=== PATIENT | male | born 1955 | race Caucasian/White ===

== ENCOUNTER 2023-10-15 21:01 | Emergency (ER) | payer MEDICARE, BC, SELFPAY ==
[2023-10-15 21:06] VITALS: BP 140/94
[2023-10-15 21:38] VITALS: BP 134/87
[2023-10-15 22:00] VITALS: BP 133/94
[2023-10-15] MEDS: NSS 1000 IV (22:06)
[2023-10-15 22:11] VITALS: BMI 24.4
[2023-10-15] MEDS: ZOFRAN 4 MG IV (22:15)
[2023-10-15 22:22] LABS: % Basophils 0.3 % (0-2); % Lymphocytes 25.2 % (20.5-51.1); % Monocytes 19.2 % (1.7-9.3); % Neutrophils 55.3 % (42.2-75.2); Absolute Lymphocytes 0.9 10^3/uL (1.2-3.4); Absolute Monocytes 0.7 10^3/uL (0.1-0.6); Hematocrit 44.8 % (39.0-52.0); Mean Corp Hgb Conc. 35.7 g/dL (33.0-37.0); Mean Corpuscular Hgb 30.6 pg (27.0-31.0); Mean Corpuscular Volume 85.7 fL (80.0-94.0); Mean Platelet Volume 9.7 fL (7.4-10.4); Nucleated Red Blood Cells % 0 % (-); Platelet Count 112 10^3/uL (130-400); Red Blood Cell Count 5.23 10^6/uL (4.70-6.10); Red Cell Dist. Width 12.4 % (11.5-14.5); White Blood Cell Count 3.7 10^3/uL (4.8-10.8)
[2023-10-15 22:34] LABS: COVID-19 Antigen Negative (Negative)
[2023-10-15 22:41] LABS: ALT (SGPT) 27 U/L (0-50); AST (SGOT) 38 U/L (17-59); Albumin 4.4 g/dl (3.5-5.0); Alkaline Phosphatase 65 U/L (38-126); Blood Urea Nitrogen 28 mg/dl (9-20); Calcium 9.1 mg/dl (8.4-10.2); Carbon Dioxide 28 mmol/L (22-30); Chloride 100 mmol/L (98-107); Estimated Creatinine Clearance 60 ml/min; Glucose 100 mg/dl (70-99); Lipase 46 U/L (23-300); Potassium 4.9 mmol/L (3.5-5.1); Sodium 136 mmol/L (135-145); Total Bilirubin 1.6 mg/dl (0.2-1.3); Total Protein 6.5 g/dl (6.3-8.2); eGFR > 60.00
--- NOTE | 2023-10-15 22:57 | ED.GENMED ---
History of Present Illness
General
Chief Complaint: Dehydration Symptoms
Source: patient
Exam Limitations: none
Time Seen by Provider: 10/15/23 22:12
Nursing documentation reviewed up to this point in time: agreed with
History of Present Illness
History of Present Illness:
The patient is a 68-year-old male with past medical history of hyperlipidemia presenting to the emergency department today with concerns of 5 days of nausea decreased appetite increased mucus and upper respiratory symptoms. Patient was in [place]
and flew home early due to the symptoms. Patient feels that he is very dehydrated due to lack of oral intake. No specific chest pain fevers change in bowel movements.
Past History
Past History
ED Past Medical History: Other (Migraine headaches)
ED Past Surgical History: Negative Cardiac
Social History
Tobacco: Non-smoker
Alcohol: None
Drug: None
Personal:
Living: with family
Employment: Employed
Family History
Family History: Other (Noncontributory)
Review of Systems
Review of Systems
Allergies reviewed?: Yes
All Other Systems: ROS reviewed and negative except as documented in HPI and ROS
Phy Exam
Physical Exam
Physical Exam:
GENERAL: Alert , in no apparent distress
EYE: pupils equal and reactive
NECK: Supple, no significant adenopathy.
ENT: o/p clr, mmm.
CARDIAC: Regular rate and rhythm .
LUNGS: Clear breath sounds bilaterally, no acute respiratory distress, no wheezes/rales/rhonchi
ABDOMEN: Soft, without focal tenderness, no r/g, no cvat
NEUROLOGICAL: Alert and oriented, no focal neuro deficits
SKIN: Warm and dry, skin intact.
MUSCULOSKELETAL: No edema, well perfused.
PSYCH: Normal and appropriate interaction.
Course
Orders/Labs/Results
Orders:
Orders
10/15/23 22:05
0.9% Sodium Chloride 1000 ml [Nss] 1,000 ml IV BOLUS
10/15/23 22:10
CBC/With Diff [Complete Blood Count/With Diff] Urgent
CMP [Comprehensive Metabolic Panel] Urgent
COVID-19 Antigen Urgent
Source: Nasal Swab
Lipase Urgent
10/15/23 22:13
EKG [Electrocardiogram (*1)] Urgent
Reason for Study: Fatigue / Weakness
Ondansetron Injectable [Zofran] 4 mg IV NOW STA
Chest [CR Chest - 2 Views ] Urgent
Comment:
Reason For Exam: couugh mucous
10/15/23 22:14
EKG- Treatment ONCE
10/15/23 23:18
Dexamethasone Sod Phosphate [Decadron] 10 mg IV NOW STA
Abnormal Lab Results
10/15/23
22:10
WBC 3.7 L 10^3/uL
(4.8-10.8)
Plt Count 112 L 10^3/uL
(130-400)
Absolute Lymphs (auto) 0.9 L 10^3/uL
(1.2-3.4)
Absolute Monos (auto) 0.7 H 10^3/uL
(0.1-0.6)
Monocytes % 19.2 H %
(1.7-9.3)
BUN 28 H mg/dl
(9-20)
Glucose 100 H mg/dl
(70-99)
Total Bilirubin 1.6 H mg/dl
(0.2-1.3)
10/15/23 22:10
10/15/23 22:10
Vital Signs
Initial and Last Documented VS:
Initial Vital Signs
Temp Pulse Resp BP Pulse Ox
98.7 F 82 16 140/94 95
10/15/23 21:06 10/15/23 21:06 10/15/23 21:06 10/15/23 21:06 10/15/23 21:06
Last Documented Vital Signs
Temp Pulse Resp BP Pulse Ox
98.7 F 67 18 143/71 98
10/15/23 21:06 10/15/23 23:42 10/15/23 23:42 10/15/23 23:42 10/15/23 23:42
MDM/Problems Addressed
MDM/Problems Addressed:
68-year-old male presenting to the emergency department today with concerns of nausea decreased appetite over the past 5 days also large amount of upper respiratory mucus was recently [place] no sick contacts arrival here vital signs are normal
patient no obvious distress no abdominal pain clear lungs normal heart sounds. EKG nonischemic labs potentially consistent with dehydration considering elevated BUN to creatinine ratio. Otherwise electrolytes normal. Chest x-ray without acute
abnormalities. On examination patient does have significant inflammation of the mucous membranes. Patient given dose of steroid and also given dose of Zofran help with nausea. No evidence of process advised for symptomatic treatment at home close
outpatient follow-up and return precautions were given.
*Critical Care Note
Total Time (30-74mins, 75-104mins- exclusive of procedures): Not Applicable
ED Attending Note
-
Portions of this chart may have been created with voice recognition software.� Occasional wrong word or��sound alike� substitutions may have occurred due to the inherent limitations of voice recognition software.
Discharge Plan
Departure
Patient Disposition: Home (Routine Discharge)
Date of Disposition: 10/15/23
Time of Disposition: 23:42
Patient with high blood pressure during this ER visit?: No
Condition: Good
Covid-19: Not Applicable
Discharge Problem:
Nausea, URI (upper respiratory infection)
Instructions: Dehydration, Adult (DC), Nausea and Vomiting, Adult (DC)
Prescriptions:
New
ondansetron 4 mg tablet,disintegrating
4 mg PO Q8H PRN (Reason: nausea and vomiting) Qty: 7 0RF
No Action
sildenafil [Viagra] 50 MG tablet
50 mg PO PRN PRN (Reason: erectile dysfunction)
simvastatin 40 MG tablet
40 mg PO QPM
ondansetron 4 MG tablet,disintegrating
4 mg PO TIDPRN PRN (Reason: NAUSEA) Qty: 20 0RF
jrjilnx-vchawasrjcqpv-ztnoopct 1 TABLET tablet
1 tab PO Q4 Qty: 30 0RF
Referrals:
Yariel Hernández MD [Family Provider] -
Activity Restrictions/Additional Instructions:
You came to the emergency department today with concerns of ongoing nausea. Here you had a reassuring assessment without life-threatening process. Please take the Zofran every 6-8 hours as needed for ongoing nausea. Return to the emergency
department for any worsening, new or concerning symptoms.
Interventions
Interventions:
*Risk Screen - Suicide Last Done: 10/15/23 21:06
*General Assessment Last Done: 10/15/23 21:06
*Neglect/Abuse Screening Last Done: 10/15/23 21:06
ED- Fall Risk Assessment Last Done: 10/15/23 22:21
*Nursing Disposition Last Done: 10/15/23 23:43
ED- Cardiac Assessment Last Done: 10/15/23 22:21
ED- Neurological Assessment Last Done: 10/15/23 22:21
ED- Pulmonary Assessment Last Done: 10/15/23 22:21
Discharge Date and Time
Discharge Date/Time: 10/15/23 23:46
Print Language: LITHUANIAN
[2023-10-15] MEDS: DECADRON 10 MG IV (23:35)
[2023-10-15 23:42] VITALS: BP 143/71
== END 2023-10-15 23:46 | disposition home or self-care (01) ==
LOC: EMR 21:01
PROVIDERS: EMERGENCY PHYSICIAN Emergency Medicine; FAMILY PHYSICIAN Family Medicine
DX: J06.9 Acute upper respiratory infection, unspecified (principal); R11.0 Nausea; E78.5 Hyperlipidemia, unspecified
CPT/HCPCS: 99285; 96374; 96375; 71046; 80053; 83690; 85025; 87811; 93005